=== PATIENT | male | born 1990 | race Caucasian/White ===

== ENCOUNTER 2021-12-21 19:33 | Emergency (ER) | payer OTHER ==
[2021-12-21 19:45] VITALS: BP 142/100; PULSE 96; RESP 16; TEMP 98.3
[2021-12-21] MEDS ORDERED: DIPH,PERTUS(ACELL)TETVAC-LF 0.5 ML VIAL IM ONE (20:35)
[2021-12-21] MEDS ORDERED: AMOXIC-POT CLAV 875-125MG 1 EACH TAB PO STA (20:35)
--- NOTE | 2021-12-21 20:56 | ED ---
Wound/Laceration HPI - General Chief Complaint: Wound/Laceration Stated Complaint: Dog Bite Time Seen by Provider: 12/21/21 20:30 Source: patient Mode of arrival: ambulatory - History of Present Illness Initial Comments: Patient is a 31-year-old male presenting with chief complaint of dog bite. 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 Patient did not gather information on the dog from the curriculum counselor as he wanted to remove himself from the situation. He called his employer who instructed him to report to the ER for evaluation. Patient states he is not up-to-date on his tetanus. Patient states that he has full range of motion of the leg and is able to ambulate. He denies any numbness or tingling or weakness. No radiation of the pain. He states that there are 2 puncture wounds on the left calf. - Related Data Previous Rx's Medication Instructions Recorded Amoxic-Pot Clav 875-125Mg 1 tab PO BID 10 Days #20 tab 12/21/21 [Augmentin 875-125] Allergies Allergy/AdvReac Type Severity Reaction Status Date / Time No Known Allergies Allergy Verified 12/21/21 19:45 Review of Systems ROS Statement: Those systems with pertinent positive or pertinent negative responses have been documented in the HPI. ROS Other: All systems not noted in ROS Statement are negative. Past Medical History Past Medical History: No Reported History History of Any Multi-Drug Resistant Organisms: None Reported Past Surgical History: No Surgical Hx Reported Past Psychological History: No Psychological Hx Reported Smoking Status: Never smoker Past Alcohol Use History: Rare Past Drug Use History: None Reported General Exam Limitations: no limitations General appearance: alert, in no apparent distress Head exam: Present: atraumatic, normocephalic, normal inspection Eye exam: Present: normal appearance, EOMI. Absent: scleral icterus Neck exam: Present: normal inspection Extremities exam: Present: full ROM. Absent: normal inspection (2 puncture wounds to the left calf), tenderness, joint swelling, calf tenderness Neurological exam: Present: alert, oriented X3, CN II-XII intact Psychiatric exam: Present: normal affect, normal mood Course Vital Signs 12/21/21 19:42 Temperature 98.3 F Pulse Rate 96 Respiratory 16 Rate Blood Pressure 142/100 O2 Sat by Pulse 98 Oximetry Medical Decision Making - Medical Decision Making Patient is a 31-year-old male presenting for evaluation of dog bite. He obtained it at work while delivering a package through [employer]. Patient states that the dog was someone's pet, he did not obtain further information on the dog as he wanted to remove himself from the situation. Patient has full range of motion of the leg, sensation is intact, he is able to ambulate without pain. On examination there are 2 puncture wounds to the left lower leg. On palpation there seems to be no foreign body. Patient was given tetanus booster and first dose of Augmentin here in the ER. X-ray shows foreign body or acute abnormality. I educated the patient on wound care. Provided a gauze dressing over the largest wound, I did not close the puncture wound. Provided patient with a prescription for Augmentin 875 twice a day for 10 days. I provided him with a referral for primary care, follow-up in one week. Educated the patient on return parameters and alarm symptoms. Answered all questions. Patient conveyed verbal understanding and agreed to the plan. - Radiology Data Radiology results: report reviewed, image reviewed Tibia-fibula x-ray: No radiopaque foreign bodies Disposition Clinical Impression: Dog bite Disposition: HOME SELF-CARE Instructions (If sedation given, give patient instructions): Animal Bite (ED) Additional Instructions: Take medication as prescribed. Take Motrin, Tylenol, utilize ice for pain control. Follow-up with primary care this week. Report back to ER if any worsening symptoms, including but not limited to increased redness, swelling, pain, fever, chills, Ficker foul-smelling discharge from the area. Prescriptions: Amoxic-Pot Clav 875-125Mg [Augmentin 875-125] 1 tab PO BID 10 Days #20 tab Is patient prescribed a controlled substance at d/c from ED?: No Referrals: Asad Dunbar III, MD [STAFF PHYSICIAN] - 12/28/21 Time of Disposition: 21:12
--- NOTE | 2021-12-21 20:58 | XR ---
EXAMINATION TYPE: XR tibia fibula LT DATE OF EXAM: 12/21/2021 COMPARISON: None HISTORY: Dog bite TECHNIQUE: Left tibia and fibula are examined in 2 projections FINDINGS: No acute fracture or dislocation is evident. Soft tissues appear normal. No radiopaque fore ign bodies are evident. IMPRESSION: 1. No radiopaque foreign bodies.
== END 2021-12-21 21:21 | disposition home or self-care (01) ==
LOC: EC 19:33
DX: S81.812A Laceration without foreign body, left lower leg, initial encounter (principal); W54.0XXA Bitten by dog, initial encounter
CPT/HCPCS: 90471; 90715; 99283